=== PATIENT | female | born 1960 | race Caucasian/White ===

== ENCOUNTER → 2017-12-31 | Outpatient (CLI) | payer SELFPAY ==
[~2017-12-31] MED LIST: ASPIRIN 32325 MG/TAB PO; LORTAB 5/500 501 TAB PO; METHOCARBAMOL500 MG PO; NO HOME MEDICATIONS
[2017-12-31 17:25] LABS: THYROID STIMULATING HORMONE < 0.015 uIU/mL (0.465-4.680)
== END ==
LOC: ZLAB.FHCC 16:41
DX: Z01.89 Encounter for other specified special examinations (principal)

== ENCOUNTER 2018-01-17 01:20 | Emergency (ER) | payer SELFPAY ==
[~2018-01-17] VITALS: Ht 157.5 cm; Wt 63.6 kg
[2018-01-17 01:25] VITALS: TEMP 97.7
[2018-01-17] MEDS ORDERED: ASPIRIN 81M81 MG/TA2 PO (01:32)
[2018-01-17] MEDS ORDERED: PLAVIX 75MG TAB75 MG PO (01:33)
[2018-01-17] MEDS ORDERED: LIPITOR 80MG80 MG PO (01:33)
[2018-01-17] MEDS ORDERED: TAPAZOLE10 MG PO (01:33)
[2018-01-17] MEDS ORDERED: TOPROL XL 50MG50 MG PO (01:34)
[2018-01-17] MEDS ORDERED: NITROSTAT0.4 MG/TAB SL (01:34)
[2018-01-17 02:12] LABS: COLLECTION METHOD CLEAN CATCH
[2018-01-17 02:14] LABS: BASO % 0.5 % (0.0-2.0); EOS # 0.4 (0.0-0.7); EOS % 5.3 % (0-4.0); GRAN # 3.9 (1.4-6.5); HEMATOCRIT 37.7 % (37.0-47.0); HEMOGLOBIN 12.4 g/dl (12.5-16.0); LYMPH # 3.1 (1.2-3.4); LYMPH % 38.5 % (20.0-51.0); MEAN CELL VOLUME 80 fl (80.0-100.0); MEAN CORPUSCULAR HEMOGLOBIN 26 pg (27.0-31.0); MEAN CORPUSCULAR HGB CONC 33 g/dl (33.0-37.0); MEAN PLATELET VOLUME 9.9 fl (7.4-10.4); MONO # 0.6 (0.1-0.6); MONO % 7.6 % (1.7-9.3); PLATELET COUNT 309 K/mm3 (130-400); RED BLOOD COUNT 4.73 M/mm3 (4.10-5.30); REDCELL DISTRIBUTION WIDTH-CV 13.1 % (11.5-14.5)
[2018-01-17 02:18] LABS: PH 5 (5-8); SQUAMOUS EPITHELIAL None Seen /hpf; URINE APPEARANCE Clear; URINE BACTERIA None Seen /hpf; URINE BILIRUBIN Negative (NEGATIVE); URINE BLOOD Negative (NEGATIVE); URINE COLOR Straw; URINE GLUCOSE Negative (NEGATIVE); URINE KETONE Negative (NEGATIVE); URINE LEUKOCYTE ESTERASE Negative (NEGATIVE); URINE NITRATE Negative (NEGATIVE); URINE PROTEIN(semi-quant) Negative (NEGATIVE); URINE RBC 0-2 /hpf; URINE UROBILINOGEN Negative (NEGATIVE)
[2018-01-17 02:25] LABS: ALANINE AMINOTRANSFERASE 24 U/L (9-52); ALBUMIN 4.2 gm/dL (3.5-5.0); ALKALINE PHOSPHATASE 229 U/L (50-136); ANION GAP 16 mmol/L (7-16); AST,SGOT 22 U/L (15-37); BILIRUBIN,TOTAL 0.6 mg/dL (0.0-1.0); BLOOD UREA NITROGEN 13 mg/dL (7-17); CARBON DIOXIDE 19 mmol/L (22-30); CHLORIDE 108 mmol/L (98-107); CREATININE, serum 0.67 mg/dL (0.52-1.25); GLUCOSE 93 mg/dL (74-106); LIPASE 419 U/L (23-300); SODIUM 142 mmol/L (137-145); TOTAL PROTEIN 8.8 gm/dL (6.4-8.2)
[2018-01-17 02:38] LABS: C-REACTIVE PROTEIN < 0.5 mg/dL (0.0-0.9)
[2018-01-17] MEDS ORDERED: MIRALAX 255 GM255 GM PO (05:04)
[2018-01-17 05:15] VITALS: BP 114/87; PULSE 49
[2018-01-18] MEDS ORDERED: FLEXERIL 1010 MG/TAB PO (06:29)
[2018-01-18] MEDS ORDERED: LIDODERM 5% PATC1 EA TP (06:29)
== END 2018-01-17 05:16 | disposition home or self-care (01) ==
LOC: COL.ER 01:20
PROVIDERS: Emergency Medicine
DX: K59.00 Constipation, unspecified (principal); I25.10 Atherosclerotic heart disease of native coronary artery without angina pectoris; Z79.82 Long term (current) use of aspirin; Z79.02 Long term (current) use of antithrombotics/antiplatelets; Z87.891 Personal history of nicotine dependence; Z98.890 Other specified postprocedural states; Z86.39 Personal history of other endocrine, nutritional and metabolic disease
CPT/HCPCS: J1885; J2405; J3010; J7030

== ENCOUNTER 2018-01-18 03:34 | Emergency (ER) | payer SELFPAY ==
[~2018-01-18] VITALS: Ht 157.5 cm; Wt 63.6 kg
[~2018-01-18 03:34] MED LIST changes: +ASPIRIN 81M81 MG/TA2 PO; +LIPITOR 80MG80 MG PO; +MIRALAX 255 GM255 GM PO; +NITROSTAT0.4 MG/TAB SL; +PLAVIX 75MG TAB75 MG PO; +TAPAZOLE10 MG PO; +TOPROL XL 50MG50 MG PO
[2018-01-18 03:39] VITALS: TEMP 97
[2018-01-18 04:23] LABS: BASO % 0.5 % (0.0-2.0); EOS # 0.3 (0.0-0.7); EOS % 5.3 % (0-4.0); GRAN # 3.1 (1.4-6.5); LYMPH % 34.2 % (20.0-51.0); MEAN CELL VOLUME 80 fl (80.0-100.0); MEAN CORPUSCULAR HEMOGLOBIN 26 pg (27.0-31.0); MEAN CORPUSCULAR HGB CONC 33 g/dl (33.0-37.0); MEAN PLATELET VOLUME 10.1 fl (7.4-10.4); MONO # 0.5 (0.1-0.6); MONO % 7.8 % (1.7-9.3); PLATELET COUNT 271 K/mm3 (130-400)
[2018-01-18 04:38] LABS: HEMATOCRIT 33.5 % (37.0-47.0)
[2018-01-18 04:46] LABS: ALBUMIN 3.7 gm/dL (3.5-5.0); BILIRUBIN,TOTAL 0.7 mg/dL (0.0-1.0); CALCIUM 9.4 mg/dL (8.4-10.2); CREATININE, serum 0.64 mg/dL (0.52-1.25); POTASSIUM 4.2 mmol/L (3.4-5.0); TOTAL PROTEIN 7.5 gm/dL (6.4-8.2)
[2018-01-18 04:57] LABS: TROPONIN-I 0.031 ng/mL (0.000-0.034)
[2018-01-18] MEDS ORDERED: FLEXERIL 1010 MG/TAB PO (06:29)
[2018-01-18] MEDS ORDERED: LIDODERM 5% PATC1 EA TP (06:29)
[2018-01-18 06:51] VITALS: BP 95/60; PULSE 55
== END 2018-01-18 06:57 | disposition home or self-care (01) ==
LOC: COL.ER 03:34
PROVIDERS: Emergency Medicine
DX: K59.00 Constipation, unspecified (principal); R07.81 Pleurodynia; Z79.82 Long term (current) use of aspirin; Z79.02 Long term (current) use of antithrombotics/antiplatelets; Z87.891 Personal history of nicotine dependence; E05.00 Thyrotoxicosis with diffuse goiter without thyrotoxic crisis or storm
CPT/HCPCS: J1885

== ENCOUNTER → 2018-03-08 | Outpatient (CLI) | payer SELFPAY ==
[~2018-03-08] MED LIST changes: +FLEXERIL 1010 MG/TAB PO; +LIDODERM 5% PATC1 EA TP
[2018-03-08 09:14] LABS: CHOLESTEROL RISK RATIO 3.1
== END ==
LOC: COL.LAB 08:22
PROVIDERS: Family Medicine
DX: I21.9 Acute myocardial infarction, unspecified (principal)

== ENCOUNTER → 2018-04-30 | Outpatient (CLI) | payer SELFPAY ==
[2018-04-30 09:16] LABS: COLLECTION METHOD CLEAN CATCH
[2018-04-30 09:21] LABS: HEMATOCRIT 43.1 % (37.0-47.0); HEMOGLOBIN 14.1 g/dl (12.5-16.0); MEAN CELL VOLUME 87 fl (80.0-100.0); MEAN CORPUSCULAR HEMOGLOBIN 29 pg (27.0-31.0); MEAN CORPUSCULAR HGB CONC 33 g/dl (33.0-37.0); MEAN PLATELET VOLUME 10.1 fl (7.4-10.4); PLATELET COUNT 299 K/mm3 (130-400); RED BLOOD COUNT 4.95 M/mm3 (4.10-5.30); REDCELL DISTRIBUTION WIDTH-CV 14.8 % (11.5-14.5)
[2018-04-30 09:29] LABS: MUCOUS Present /lpf; PH 7 (5-8); SQUAMOUS EPITHELIAL 0-2 /hpf; URINE APPEARANCE Clear; URINE BACTERIA None Seen /hpf; URINE BILIRUBIN Negative (NEGATIVE); URINE BLOOD Negative (NEGATIVE); URINE COLOR Straw; URINE GLUCOSE Negative (NEGATIVE); URINE KETONE Negative (NEGATIVE); URINE LEUKOCYTE ESTERASE Negative (NEGATIVE); URINE NITRATE Negative (NEGATIVE); URINE PROTEIN(semi-quant) 2+ (NEGATIVE); URINE RBC 0-2 /hpf; URINE UROBILINOGEN Negative (NEGATIVE); URINE WBC 0-2 /hpf
[2018-04-30 09:30] LABS: ALBUMIN 4.2 gm/dL (3.5-5.0); BILIRUBIN,TOTAL 0.4 mg/dL (0.0-1.0); CHOLESTEROL RISK RATIO 3.2; CREATININE, serum 0.94 mg/dL (0.52-1.25); POTASSIUM 4.9 mmol/L (3.4-5.0); TOTAL PROTEIN 7.8 gm/dL (6.4-8.2)
== END ==
LOC: COL.LAB 08:25
PROVIDERS: Family Medicine
DX: I70.202 Unspecified atherosclerosis of native arteries of extremities, left leg (principal); I25.2 Old myocardial infarction; R10.31 Right lower quadrant pain; Z98.890 Other specified postprocedural states

== ENCOUNTER → 2018-05-03 | Outpatient (CLI) | payer SELFPAY | LOC: COL.RAD 14:04 | DX: M43.8X6 Other specified deforming dorsopathies, lumbar region (principal); R10.31 Right lower quadrant pain | CPT/HCPCS: Q9967 ==

== ENCOUNTER → 2018-06-04 | Outpatient (CLI) | payer SELFPAY | LOC: COL.LAB 11:56 | PROVIDERS: Family Medicine | DX: I73.9 Peripheral vascular disease, unspecified (principal); I25.2 Old myocardial infarction; R00.1 Bradycardia, unspecified ==

== ENCOUNTER → 2018-06-08 | Outpatient (CLI) | payer SELFPAY | LOC: COL.CARD 07:30 | DX: R00.1 Bradycardia, unspecified (principal); I73.9 Peripheral vascular disease, unspecified; R53.83 Other fatigue ==

== ENCOUNTER → 2018-06-11 | Outpatient (CLI) | payer OTHER | LOC: COL.LAB 09:55 | DX: Z01.89 Encounter for other specified special examinations (principal) ==

== ENCOUNTER → 2018-06-18 | Outpatient (CLI) | payer SELFPAY | LOC: COL.LAB 12:54 | DX: E03.9 Hypothyroidism, unspecified (principal) ==

== ENCOUNTER → 2018-07-05 | Outpatient (CLI) | payer SELFPAY | LOC: COL.LAB 13:07 | DX: Z01.89 Encounter for other specified special examinations (principal) ==

== ENCOUNTER → 2018-08-04 | Outpatient (CLI) | payer MEDICAID ==
[2018-08-04 11:44] LABS: THYROID STIMULATING HORMONE 0.029 uIU/mL (0.465-4.680)
== END ==
LOC: ZCOL.LAB 10:18 → COL.LAB 10:18
PROVIDERS: Family Medicine
DX: E05.00 Thyrotoxicosis with diffuse goiter without thyrotoxic crisis or storm (principal)

== ENCOUNTER → 2019-02-03 | Outpatient (CLI) | payer MEDICAID | LOC: COL.RAD 09:39 | DX: E05.00 Thyrotoxicosis with diffuse goiter without thyrotoxic crisis or storm (principal) | CPT/HCPCS: A9516 ==

== ENCOUNTER → 2019-05-26 | Outpatient (CLI) | payer MEDICAID | LOC: COL.VAS 14:38 | DX: I10 Essential (primary) hypertension (principal); R01.1 Cardiac murmur, unspecified; I35.1 Nonrheumatic aortic (valve) insufficiency ==

== ENCOUNTER → 2021-08-07 | Outpatient (CLI) | payer MEDICAID | LOC: COL.RAD 10:47 | DX: I70.1 Atherosclerosis of renal artery (principal); Z95.828 Presence of other vascular implants and grafts | CPT/HCPCS: Q9967 ==

== ENCOUNTER → 2021-08-08 | Outpatient (CLI) | payer MEDICAID | LOC: COL.RAD 10:15 | DX: Z95.1 Presence of aortocoronary bypass graft (principal) | CPT/HCPCS: Q9967 ==

== ENCOUNTER 2023-08-14 09:31 | Emergency (ER) | payer SELFPAY ==
[~2023-08-14] VITALS: Ht 160 cm; Wt 76.4 kg
[2023-08-14 09:47] VITALS: TEMP 97.8
[2023-08-14 10:24] LABS: BASO # 0.1 K/mm3 (0.0-0.2); BASO % 0.9 % (0.0-2.0); EOS # 0.2 K/mm3 (0.0-0.7); EOS % 2.5 % (0.0-4.0); GRAN # 5.8 K/mm3 (1.4-6.5); GRAN % 68.3 % (42.2-75.2); HEMATOCRIT 39.3 % (37.0-47.0); HEMOGLOBIN 12.7 g/dl (12.5-16.0); LYMPH # 1.9 K/mm3 (1.2-3.4); LYMPH % 22.3 % (20.0-51.0); MEAN CELL VOLUME 91 fl (80.0-100.0); MEAN CORPUSCULAR HEMOGLOBIN 30 pg (27-31); MEAN CORPUSCULAR HGB CONC 32 g/dl (33.0-37.0); MEAN PLATELET VOLUME 10.1 fl (7.4-10.4); MONO # 0.5 K/mm3 (0.1-0.6); MONO % 5.8 % (1.7-9.3); PLATELET COUNT 394 K/mm3 (130-400); RED BLOOD COUNT 4.31 M/mm3 (4.10-5.30)
[2023-08-14 10:44] LABS: ALBUMIN 3.4 gm/dL (3.4-4.8); BILIRUBIN,TOTAL 0.4 mg/dL (0.2-1.2); CALCIUM 10.5 mg/dL (8.4-10.2); CREATININE, serum 2.51 mg/dL (0.57-1.11); POTASSIUM 4.5 mmol/L (3.5-4.5); TOTAL PROTEIN 8.5 gm/dL (6.2-8.1)
[2023-08-14 11:44] LABS: COLLECTION METHOD CLEAN CATCH
[2023-08-14 11:55] LABS: SQUAMOUS EPITHELIAL None Seen /hpf (0-10); URINE APPEARANCE Clear (CLEAR/HAZY); URINE BLOOD TRACE-LYSED (NEGATIVE); URINE COLOR Yellow (YELLOW); URINE GLUCOSE Negative (NEGATIVE); URINE KETONE Negative (NEGATIVE); URINE NITRATE Negative (NEGATIVE); URINE PROTEIN(semi-quant) 3+ (NEGATIVE); URINE RBC None Seen /hpf (0-2); URINE UROBILINOGEN 0.2 E.U/dL (0.2-1.0)
[2023-08-14 13:48] VITALS: BP 152/46; PULSE 60
== END 2023-08-14 13:48 | disposition home or self-care (01) ==
LOC: COL.ER 09:31
PROVIDERS: Physician Assistant
DX: R20.2 Paresthesia of skin (principal); R11.2 Nausea with vomiting, unspecified; R19.7 Diarrhea, unspecified; I25.810 Atherosclerosis of coronary artery bypass graft(s) without angina pectoris; N18.4 Chronic kidney disease, stage 4 (severe); Z87.891 Personal history of nicotine dependence; Z79.82 Long term (current) use of aspirin
CPT/HCPCS: J7030

== ENCOUNTER → 2023-08-17 | Outpatient (CLI) | payer SELFPAY | LOC: COL.RAD 07:48 | DX: M79.7 Fibromyalgia (principal); N18.4 Chronic kidney disease, stage 4 (severe); I25.10 Atherosclerotic heart disease of native coronary artery without angina pectoris; Z95.820 Peripheral vascular angioplasty status with implants and grafts; Z95.5 Presence of coronary angioplasty implant and graft ==

== ENCOUNTER 2023-09-18 15:44 | Inpatient (IN) | payer SELFPAY ==
[~2023-09-18] VITALS: Ht 160 cm; Wt 79.3 kg
[2023-09-18 17:13] LABS: BASO # 0.1 K/mm3 (0.0-0.2); BASO % 0.8 % (0.0-2.0); EOS # 0.3 K/mm3 (0.0-0.7); EOS % 2.4 % (0.0-4.0); GRAN # 9.1 K/mm3 (1.4-6.5); GRAN % 72.5 % (42.2-75.2); LYMPH # 1.7 K/mm3 (1.2-3.4); LYMPH % 13.7 % (20.0-51.0); MEAN CELL VOLUME 89 fl (80.0-100.0); MEAN CORPUSCULAR HGB CONC 32 g/dl (33.0-37.0); MONO # 1.3 K/mm3 (0.1-0.6); MONO % 10.1 % (1.7-9.3); PLATELET COUNT 472 K/mm3 (130-400); RED BLOOD COUNT 3.37 M/mm3 (4.10-5.30); REDCELL DISTRIBUTION WIDTH-CV 13.2 % (11.5-14.5)
[2023-09-18 17:13] LABS: COLLECTION METHOD CLEAN CATCH
[2023-09-18 17:26] LABS: ALBUMIN 2.9 gm/dL (3.4-4.8); BILIRUBIN,TOTAL 0.5 mg/dL (0.2-1.2); C-REACTIVE PROTEIN 17.4 mg/dL (0.00-0.50); CALCIUM 9.5 mg/dL (8.4-10.2); CREATININE, serum 2.81 mg/dL (0.57-1.11); POTASSIUM 4.3 mmol/L (3.5-4.5); TOTAL PROTEIN 7.7 gm/dL (6.2-8.1)
[2023-09-18 17:28] LABS: HEMOGLOBIN 9.5 g/dl (12.5-16.0); MEAN CORPUSCULAR HEMOGLOBIN 28 pg (27-31)
[2023-09-18 17:35] LABS: TROPONIN-I 0.115 ng/mL (0.00-0.033)
[2023-09-18 17:40] LABS: PH 5.5 (5.0-8.5); URINE APPEARANCE Hazy (CLEAR/HAZY); URINE BLOOD TRACE-INTACT (NEGATIVE); URINE COLOR Yellow (YELLOW); URINE GLUCOSE Negative (NEGATIVE); URINE KETONE Negative (NEGATIVE); URINE NITRATE Negative (NEGATIVE); URINE PROTEIN(semi-quant) 3+ (NEGATIVE); URINE RBC 0-2 /hpf (0-2); URINE UROBILINOGEN 0.2 E.U/dL (0.2-1.0); URINE WBC 20-50 /hpf (0-2)
[2023-09-18 17:41] LABS: URINE BACTERIA Rare /hpf (NONE SEEN)
[2023-09-18 18:19] LABS: ERYTHROCYTE SEDIMENTATION RATE 69 mm/hr (0-30)
[2023-09-18] MEDS ORDERED: cefTRIAXone 1 G in Water For Injection,Sterile 10 ML IV ONE (19:00)
[2023-09-18] MEDS ORDERED: TIROSINT75 MC1 PO (20:25)
[2023-09-18] MEDS ORDERED: NORVASC 5MG5 MG/TAB PO ×2 (20:27)
[2023-09-18] MEDS ORDERED: TYLENOL 500MG500 MG PO (20:27)
[2023-09-18] MEDS ORDERED: TENORMIN 2525 MG/TAB PO (20:28)
[2023-09-18] MEDS ORDERED: B-121000 MCG PO (20:29)
[2023-09-18] MEDS ORDERED: SLOW FE137 M1 PO (20:31)
[2023-09-18] MEDS ORDERED: CATAPRES0.2 MG PO (20:32)
[2023-09-18] MEDS ORDERED: PRALUENT P75 MG/1 ML SQ (20:33)
[2023-09-18] MEDS ORDERED: LYRICA 25MG CAP25 MG PO (20:34)
[2023-09-18] MEDS ORDERED: SENOKOT8.6 MG PO (20:34)
[2023-09-18] MEDS ORDERED: Cyclobenzaprine 10 MG TAB PO PRN (20:45)
[2023-09-18 21:00] VITALS: BP_SYST 159
[2023-09-18] MEDS ORDERED: amLODIPine 5 MG TAB PO SCH (21:00)
[2023-09-18] MEDS ORDERED: Ondansetron 4 MG/2 ML VIAL IV PRN (21:00)
[2023-09-18] MEDS ORDERED: cefTRIAXone 1 G in Water For Injection,Sterile 10 ML IV SCH (21:00)
[2023-09-18] MEDS ORDERED: Acetaminophen 325 MG TAB PO PRN (21:00)
[2023-09-18] MEDS ORDERED: Morphine 4 MG/ML VIAL IV PRN (21:00)
[2023-09-18] MEDS ORDERED: cloNIDine 0.1 MG TAB PO SCH (21:00)
[2023-09-18] MEDS ORDERED: Pregabalin 25 MG CAP PO SCH (21:00)
[2023-09-18] MEDS ORDERED: Sennosides/Docusate 8.6-50 MG TAB PO SCH (21:00)
[2023-09-18] MEDS ORDERED: Albuterol/Ipratropium 3 MG-0.5 MG/3 ML Neb Soln IH PRN (21:00)
[2023-09-18] MEDS ORDERED: NS 1,000 ML IV SCH (21:00)
--- NOTE | 2023-09-18 21:12 | NUR ---
Vancomycin Initial Dosing Pharmacy Note Ordering provider: Horace Smith Indication/duration: Empiric treatment x5 days for now Relevant comorbidities: Recent surgery, [facility] consulted and recommended vancomycin and ceftriaxone after blood cultures obtained. LABS: Scr 2.81, crcl ~20 mL/min Recommendation: Start vancomycin 1500mg (20 mg/kg) loading dose, then 1000mg q48h. Goal trough 15-20, calculated trough ~15 on current ordered dose. No torugh ordered at this time. Loading dose: 1.5 grams Maintenance dose: 1 gram every 48 hours Trough goal: 15-20 ug/mL
[2023-09-18] MEDS ORDERED: Vancomycin 1.5 GM,Special Dose/Pharmacy Prepared 1.5 GM in NS 250 ML IV ONE (21:15)
[2023-09-18] MEDS ORDERED: NEURONTIN100 MG/CAP PO (22:11)
[2023-09-18 22:25] VITALS: BP 159/67; PULSE 69; TEMP 98.7
--- NOTE | 2023-09-18 23:41 | NUR ---
Patient arrived to the floor at 2148 from ED, IV to right AC infusing well, A/Ox4, admission assessment and intake done, medrec done, spoken to Radu the PA and informed him that she's no longer on plavix, pregabalin, lidocaine patch, miralax, metoprolol, methimazole, flexeril and lipitor; hospital policies orientated, denies further needs, call light and personal items within reach, will continue to monitor.
[2023-09-19] VITALS (13 sets, daily range): BP systolic 110–159; BP diastolic 56–87; PULSE 59–71; TEMP 98–99.8
--- NOTE | 2023-09-19 04:59 | NUR ---
Patient resting in bed, eyes closed, looks comfortable, respirations even and unlabored.
[2023-09-19 07:17] LABS: BASO # 0.1 K/mm3 (0.0-0.2); BASO % 0.8 % (0.0-2.0); EOS # 0.4 K/mm3 (0.0-0.7); EOS % 4.3 % (0.0-4.0); GRAN # 6.6 K/mm3 (1.4-6.5); GRAN % 69.2 % (42.2-75.2); LYMPH # 1.4 K/mm3 (1.2-3.4); LYMPH % 14.3 % (20.0-51.0); MEAN CELL VOLUME 89 fl (80.0-100.0); MEAN CORPUSCULAR HGB CONC 31 g/dl (33.0-37.0); MEAN PLATELET VOLUME 10.4 fl (7.4-10.4); MONO # 1.1 K/mm3 (0.1-0.6); MONO % 11.1 % (1.7-9.3); PLATELET COUNT 497 K/mm3 (130-400); RED BLOOD COUNT 2.61 M/mm3 (4.10-5.30); REDCELL DISTRIBUTION WIDTH-CV 13.2 % (11.5-14.5)
[2023-09-19 07:23] LABS: HEMATOCRIT 23.1 % (37.0-47.0); HEMOGLOBIN 7.2 g/dl (12.5-16.0); MEAN CORPUSCULAR HEMOGLOBIN 28 pg (27-31)
[2023-09-19 07:41] LABS: C-REACTIVE PROTEIN 14.72 mg/dL (0.00-0.50)
[2023-09-19 07:43] LABS: ALBUMIN 2.4 gm/dL (3.4-4.8); BILIRUBIN,TOTAL 0.3 mg/dL (0.2-1.2); CALCIUM 8.7 mg/dL (8.4-10.2); CHOLESTEROL RISK RATIO 5.2; CREATININE, serum 2.67 mg/dL (0.57-1.11); POTASSIUM 4.4 mmol/L (3.5-4.5); TOTAL PROTEIN 6.4 gm/dL (6.2-8.1)
[2023-09-19 08:03] LABS: THYROID STIMULATING HORMONE 9.244 uIU/mL (0.350-4.940)
[2023-09-19] MEDS ORDERED: Ferrous Sulfate 325 MG TAB PO SCH (09:00)
[2023-09-19] MEDS ORDERED: Atenolol 25 MG TAB PO SCH (09:00)
[2023-09-19] MEDS ORDERED: Polyethylene Glycol 3350 17 GM PDS PO SCH (09:00)
[2023-09-19] MEDS ORDERED: Clopidogrel 75 MG TAB PO SCH (09:00)
--- NOTE | 2023-09-19 09:25 | NUR ---
PATIENT ALERT AND ORIENTED X4. VSS. PATIENT HERE FEVERS/NAUSEA, LEFT PLEURAL EFFUSION. PATIENT DENIES ANY PAIN AT THIS TIME. PATIENT ON RA. PATIENT TOLERATED BREAKFAST. IV TO RIGHT AC INT AND FLUSHES WELL. PATIENT DENIES ANY FURTHER NEEDS. CALL LIGHT IN REACH.
--- NOTE | 2023-09-19 15:01 | NUR ---
Electric Sign Wirer met with patient to discuss discharge planning. Patient lives in [place] and sees Dr. Ortega for primary care. Patient does not use any DME and is independent with [facility]. Patient does not have insurance at this time and would like to speak with financial counseling. [employer] sent an email to [employer]. Patient does not have DPOA-HC but was interested in taking home a blank form, which [employer] provided. Patient advised two of her siblings, Tracie and Guy are her local supports. Patient plans to return home at time of discharge. Discharge Plan: Home
[2023-09-19] MEDS ORDERED: cefTRIAXone 1 G in Water For Injection,Sterile 10 ML IV SCH (20:00)
--- NOTE | 2023-09-19 20:36 | NUR ---
Patient assessed at this time, see shift assessment, reports pain to left abdomen, PS of 4/10, wanted to take tylenol doesn't want any narcotic at this time, denies further needs, call light and personal items within reach, will continue to monitor.
[2023-09-19] MEDS ORDERED: Gabapentin 100 MG CAP PO SCH (21:00)
[2023-09-20] VITALS (12 sets, daily range): BP systolic 105–148; BP diastolic 57–72; PULSE 60–74; TEMP 98.2–99.7
--- NOTE | 2023-09-20 06:40 | NUR ---
Patient reports her pain on her abdomen is better, denies further needs, she is concerned with her left side of her neck swelled up, will report off to dayshift nurse.
[2023-09-20] MEDS ORDERED: Polyethylene Glycol 3350 17 GM PDS PO SCH (09:00)
[2023-09-20] MEDS ORDERED: metroNIDAZOLE 250 MG TAB PO SCH (10:00)
--- NOTE | 2023-09-20 10:15 | NUR ---
pt a&ox3 resting in bed. meds given and assessment complete. pt denies pain. vss and tele in place. pt remains afebrile. denies feeling SOB. +1 pitting edema is present to her RLE. there is a small lump to the left side of her neck, dr eagle aware and US ordered. pt denies needs at this time. call light in reach.
--- NOTE | 2023-09-20 18:40 | NUR ---
pt reports increased pain to left side of her abdomen. spoke to jazzy HEATH and received order for tramadol.
[2023-09-20] MEDS ORDERED: traMADol 50 MG TAB PO PRN ×2 (18:45)
--- NOTE | 2023-09-20 19:13 | NUR ---
PT REFUSED TRAMADOL D/T CKD. MEDICATED WITH MORPHINE 2MG IVP FOR PAIN TO LT ABD AND FOOT.
[2023-09-20] MEDS ORDERED: Bisacodyl 5 MG TAB PO PRN (19:30)
--- NOTE | 2023-09-20 20:00 | NUR ---
PT IN BED, REPORTS CONSTIPATION, NEW ORDER RECEIVED FOR DULCOLAX TABS PRN, DOSE GIVEN NOW WITH HS MEDS. PT IS ALERT AND ORIENTED X4. HAS INT TO RT WRIST, IV ANTIBIOTIC GIVEN WITHOUT PROBLEM. PT REPORTS DECREASED URINATION, HAT PLACED IN TOILET TO MONITOR. PT DENIES WEAKNESS, INDEPENDENT IN ROOM. NOTED LLL DIMINISHED. DENIES SHORTNESS OF BREATH WITH ACTIVITY. HAS MULTIPLE HEALED INCISIONS FROM SURGERY, LT CHEST, LT ABD AND BILATERAL GROIN. PT HAS GOOD PEDAL PULSES. PT REPORTS SHE THINKS HER GOUT IS FLARING, NO REDNESS NOTED. PAIN IMPROVED WITH MORPHINE IV.
--- NOTE | 2023-09-20 22:00 | NUR ---
ORAL FLAGYL GIVEN, DISCUSSED REASON FOR MED, PT VERBALIZED UNDERSTANDING.
--- NOTE | 2023-09-20 22:56 | NUR ---
MEDICATED WITH MORPHINE 2MG IVP FOR FOOT PAIN.
[2023-09-21] VITALS (12 sets, daily range): BP systolic 109–145; BP diastolic 62–80; PULSE 54–73; TEMP 97.8–98.7
--- NOTE | 2023-09-21 04:00 | NUR ---
VSS, NO REQUEST FOR PAIN MEDS AT THIS TIME.
--- NOTE | 2023-09-21 08:00 | NUR ---
pt a&ox3 resting in bed. meds given and assessment complete. pt rates pain a 3/10 in her abdomen. denies feeling sob. vss and tele in place. INT to right wrist patent. +1 pitting edema still present to RLE. pt to have radiology studies today. pt also reports feeling less bloated this morning. pt denies needs at this time. call light in reach.
[2023-09-21] MEDS ORDERED: predniSONE 20 MG TAB PO SCH (10:00)
[2023-09-21 10:01] LABS: INR 1.2 (0.8-3.0)
--- NOTE | 2023-09-21 10:41 | NUR ---
pt off floor for ultrasound
[2023-09-21 11:21] LABS: CREATININE, serum 2.77 mg/dL (0.57-1.11)
--- NOTE | 2023-09-21 11:51 | NUR ---
pt back in room from ultrasound studies
[2023-09-21 12:30] LABS: PLEURAL FLUID COLOR YELLOW
[2023-09-21 12:31] LABS: PLEURAL FLUID APPEARANCE HAZY; PLEURAL FLUID RBC 1000 /mm3 (0-0); PLEURAL FLUID WBC 1158 /mm3
--- NOTE | 2023-09-21 20:00 | NUR ---
PT AMBULATES IN HALLWAY WITH WALKER, GAIT STEADY.
--- NOTE | 2023-09-21 20:50 | NUR ---
INT TO RT WRIST LEAKING. NEW INT STARTED TO LT WRIST, #20 INSYTE ON FIRST ATTEMPT. VANCOMYCIN INFUSING WITHOUT PROBLEM. PT TAKES HS MEDS AT THIS TIME. HAS BANDAID TO LT POSTERIOR BACK S/P THORACENTESIS. PT REPORTS FEELING BETTER AND HAS BEEN UP MORE IN ROOM. DENIES PAIN AT THIS TIME.
[2023-09-22] VITALS (11 sets, daily range): BP systolic 109–140; BP diastolic 64–70; PULSE 59–106; TEMP 97.6–98.2
[2023-09-22] MEDS ORDERED: Patient's Own Medication Item PO SCH (07:00)
[2023-09-22 09:26] LABS: BASO # 0.1 K/mm3 (0.0-0.2); BASO % 0.4 % (0.0-2.0); EOS % 0.2 % (0.0-4.0); GRAN # 10.2 K/mm3 (1.4-6.5); GRAN % 80.7 % (42.2-75.2); LYMPH # 1.5 K/mm3 (1.2-3.4); LYMPH % 11.4 % (20.0-51.0); MEAN CELL VOLUME 88 fl (80.0-100.0); MEAN CORPUSCULAR HGB CONC 31 g/dl (33.0-37.0); MEAN PLATELET VOLUME 10.8 fl (7.4-10.4); MONO # 0.8 K/mm3 (0.1-0.6); MONO % 6.5 % (1.7-9.3); PLATELET COUNT 434 K/mm3 (130-400); RED BLOOD COUNT 3.33 M/mm3 (4.10-5.30); REDCELL DISTRIBUTION WIDTH-CV 13.2 % (11.5-14.5)
[2023-09-22 09:29] LABS: HEMATOCRIT 29.2 % (37.0-47.0); HEMOGLOBIN 9.1 g/dl (12.5-16.0); MEAN CORPUSCULAR HEMOGLOBIN 27 pg (27-31)
[2023-09-22 09:54] LABS: C-REACTIVE PROTEIN 13.14 mg/dL (0.00-0.50); CREATININE, serum 2.69 mg/dL (0.57-1.11); POTASSIUM 4.9 mmol/L (3.5-4.5)
--- NOTE | 2023-09-22 09:56 | NUR ---
PATIENT ALERT AND ORIENTED X4. VSS. PATIENT HERE FOR FEVERS/NAUSEA/LEFT PLEURAL EFFUSION. PATIENT DENIES ANY PAIN THIS MORNING. ASSESSMENT PERFORMED. AM MEDS ADMINISTERED. PATIENT DENIES ANY FURTHER NEEDS. CALL LIGHT IN REACH.
[2023-09-22] MEDS ORDERED: Insulin Aspart (NovoLOG) SQ SCH (17:00)
--- NOTE | 2023-09-22 19:30 | NUR ---
Received report from CITLALY Champion. Pt is resting in bed at this time with the call light within reach. Pt is on tele monitor at this time. Pt does not look in distress at this time.
[2023-09-23] VITALS (13 sets, daily range): BP systolic 106–162; BP diastolic 56–75; PULSE 58–63; TEMP 97.5–98.3
--- NOTE | 2023-09-23 06:08 | NUR ---
Pt had an uneventful night. Pt denied pain throughout the night. Pt's vitals were stable throughout the night. Pt on room air. Pt did not have a bowel movement tonight. Pt moves independently in the room. Will give report to day shift nurse.
[2023-09-23 09:13] LABS: BASO # 0.1 K/mm3 (0.0-0.2); BASO % 0.3 % (0.0-2.0); GRAN # 13.3 K/mm3 (1.4-6.5); GRAN % 80.7 % (42.2-75.2); LYMPH # 2.2 K/mm3 (1.2-3.4); MEAN CELL VOLUME 84 fl (80.0-100.0); MEAN CORPUSCULAR HGB CONC 33 g/dl (33.0-37.0); MEAN PLATELET VOLUME 9.6 fl (7.4-10.4); MONO # 0.9 K/mm3 (0.1-0.6); MONO % 5.1 % (1.7-9.3); RED BLOOD COUNT 3.33 M/mm3 (4.10-5.30); REDCELL DISTRIBUTION WIDTH-CV 13.2 % (11.5-14.5)
[2023-09-23 09:14] LABS: HEMATOCRIT 28.1 % (37.0-47.0); HEMOGLOBIN 9.3 g/dl (12.5-16.0); MEAN CORPUSCULAR HEMOGLOBIN 28 pg (27-31); PLATELET COUNT 570 K/mm3 (130-400)
[2023-09-23 09:16] LABS: C-REACTIVE PROTEIN 6.49 mg/dL (0.00-0.50); CALCIUM 9.5 mg/dL (8.4-10.2); CREATININE, serum 2.45 mg/dL (0.57-1.11); POTASSIUM 4.2 mmol/L (3.5-4.5)
--- NOTE | 2023-09-23 11:30 | NUR ---
PATIENT ALERT AND ORIENTED X4. VSS. PATIENT HERE FOR NAUSEA/FEVERS, LEFT PLEURAL EFFUSION. PATIENT REPORTS PAIN 9/10, REPORTS NO BM. PATIENT ENCOURAGED TO TAKE FULL BOWEL REGIMEN. PATIENT AGREED. PATIENT ENCOURAGED TO INCREASE FLUID INTAKE AND AMBULATION. PATIENT ACKNOWLEDGES. TRAMADOL ADMINISTERED FOR PAIN, ZOFRAN FOR NAUSEA. NO FURTHER NEEDS. CALL LIGHT IN REACH.
[2023-09-23] MEDS ORDERED: Sod Phosphates Rectal Enema 133 ML bottle RC ONE (15:00)
[2023-09-23] MEDS ORDERED: metroNIDAZOLE 100 ML IV SCH (18:00)
--- NOTE | 2023-09-23 18:50 | NUR ---
IV INFILTRATED IN LEFT WRIST/HAND AREA AFTER VANCOMYCIN COMPLETE. IV FLAGYL TO BE STARTED, ATTEMPTED ONCE TO RESTART NEW IV. NO SUCCESS.
--- NOTE | 2023-09-23 19:50 | NUR ---
PLACED #22 INSYTE TO RFA ON FIRST ATTEMPT, IV FLAGYL CONNECTED, INFUSING WITHOUT PROBLEM.
--- NOTE | 2023-09-23 20:30 | NUR ---
PT IN BED, HS MEDS GIVEN. PT HAD MORE BM, SMALL SOFT. INDEPENDENT IN ROOM. DENIES NEED FOR PAIN MEDS. PUNCTURE SITE TO LT BACK LOLLY. AFEBRILE.
--- NOTE | 2023-09-23 23:09 | NUR ---
Tramadol 50mg po for Lt rib pain.
[2023-09-24] VITALS (7 sets, daily range): BP systolic 126–153; BP diastolic 69–76; PULSE 49–54; TEMP 97.8–98
--- NOTE | 2023-09-24 06:11 | NUR ---
SCHEDULED AM MEDS GIVEN. NO REQUEST FOR PAIN MEDS AT THIS TIME.
[2023-09-24 06:24] LABS: BASO % 0.2 % (0.0-2.0); GRAN # 9.6 K/mm3 (1.4-6.5); GRAN % 76.2 % (42.2-75.2); LYMPH # 2.1 K/mm3 (1.2-3.4); LYMPH % 16.6 % (20.0-51.0); MEAN CELL VOLUME 85 fl (80.0-100.0); MEAN CORPUSCULAR HGB CONC 32 g/dl (33.0-37.0); MEAN PLATELET VOLUME 9.6 fl (7.4-10.4); MONO # 0.7 K/mm3 (0.1-0.6); MONO % 5.9 % (1.7-9.3); PLATELET COUNT 484 K/mm3 (130-400); RED BLOOD COUNT 3.03 M/mm3 (4.10-5.30); REDCELL DISTRIBUTION WIDTH-CV 13.3 % (11.5-14.5)
[2023-09-24 06:38] LABS: CALCIUM 8.7 mg/dL (8.4-10.2); CREATININE, serum 2.28 mg/dL (0.57-1.11); POTASSIUM 5.2 mmol/L (3.5-4.5)
[2023-09-24 06:42] LABS: HEMATOCRIT 25.6 % (37.0-47.0); HEMOGLOBIN 8.3 g/dl (12.5-16.0); MEAN CORPUSCULAR HEMOGLOBIN 27 pg (27-31)
--- NOTE | 2023-09-24 09:48 | NUR ---
RECEIVED A CALL FROM TELE, PATIENT RUNNING AYAD AT 42BPM. CALLED DR HINDS TO NOTIFY. NO NEW ORDERS.
--- NOTE | 2023-09-24 10:06 | NUR ---
Snow Remover met with patient to check in and review discharge plan. Patient advised she has not been contacted by financial counseling yet and would like to discuss applying for Medicaid and financial assistance. SW sent follow up message to [employer].
--- NOTE | 2023-09-24 11:14 | NUR ---
PATIENT ALERT AND ORIENTED X4. VSS. PATIENT HERE FOR NAUSEA/FEVERS/LEFT PLEURAL EFFUSION. PATIENT REPORTS MILD PAIN THIS MORNING. PATIENT REPORTS 3 BM'S OVERNIGHT AND THIS MORNING. PATIENT GIVEN IV ZOFRAN DUE TO PATIENT REPORTING NAUSEA WITH MIRALAX INTAKE. PATIENT TOLERATED BREAKFAST WITH NO ISSUES. IV TO RIGHT FA INT AND FLUSHES WELL. CALL LIGHT IN REACH.
[2023-09-24] MEDS ORDERED: CLEOCIN HCL300 MG PO (13:13)
[2023-09-24] MEDS ORDERED: NORVASC 5MG5 MG/TAB PO (13:14)
[2023-09-24] MEDS ORDERED: LEADER CLE17 GM/Dose PO (13:15)
[2023-09-24] MEDS ORDERED: SENEXON-S 50-81 EACH PO (13:24)
[2023-09-24] MEDS ORDERED: ZOFRAN ODT4 MG PO (13:25)
--- NOTE | 2023-09-24 15:59 | NUR ---
DISCHARGE INSTRUCTIONS PROVIDED. PATIENT EDUCATION GIVEN. IV DC'D. MEDICATIONS REVIEWED. FOLLOW UP APPOINTMENTS DISCUSSED. PATIENT REPORTS HAVING APPT WITH VASCULAR SURGEON MADE, BUT NOT SURE OF TIME. APPT MADE WITH FAMILY PRACTICE. PATIENT DENIES ANY QUESTIONS OR CONCERSNS.
--- NOTE | 2023-09-24 16:38 | NUR ---
PATIENT ESCORTED OUT WITH BELONGINGS.
[2023-09-24] MEDS ORDERED: cefTRIAXone 1 G in Water For Injection,Sterile 10 ML IV SCH (20:00)
== END 2023-09-24 16:39 | disposition home or self-care (01) | DRG 155 ==
LOC: COL.ER 15:44 → SURG 20:36
PROVIDERS: Emergency Medicine; Internal Medicine; Physician Assistant; ADMIT Hospitalist
PROC: 0W9B3ZX Drainage of Left Pleural Cavity, Percutaneous Approach, Diagnostic (ICD-10-PCS; principal; 2023-09-21)
DX: K11.20 Sialoadenitis, unspecified (principal); J90 Pleural effusion, not elsewhere classified; K12.2 Cellulitis and abscess of mouth; M27.2 Inflammatory conditions of jaws; M79.81 Nontraumatic hematoma of soft tissue; I25.10 Atherosclerotic heart disease of native coronary artery without angina pectoris; N18.30 Chronic kidney disease, stage 3 unspecified; I12.9 Hypertensive chronic kidney disease with stage 1 through stage 4 chronic kidney disease, or unspecified chronic kidney disease; I08.0 Rheumatic disorders of both mitral and aortic valves; E03.9 Hypothyroidism, unspecified; G62.9 Polyneuropathy, unspecified; M10.9 Gout, unspecified; N89.8 Other specified noninflammatory disorders of vagina; D72.829 Elevated white blood cell count, unspecified; E78.5 Hyperlipidemia, unspecified; K59.00 Constipation, unspecified; Z79.890 Hormone replacement therapy; Z79.82 Long term (current) use of aspirin; Z95.5 Presence of coronary angioplasty implant and graft; Z95.820 Peripheral vascular angioplasty status with implants and grafts; Z87.891 Personal history of nicotine dependence; Z88.0 Allergy status to penicillin; Z88.8 Allergy status to other drugs, medicaments and biological substances
CPT/HCPCS: A9284; J0696; J1836; J2270; J2405; J3370; J7050; J7512; Q3014

== ENCOUNTER → 2023-11-19 | Outpatient (CLI) | payer MEDICAID ==
[~2023-11-19] MED LIST changes: +B-121000 MCG PO; +CATAPRES0.2 MG PO; +CLEOCIN HCL300 MG PO; +LEADER CLE17 GM/Dose PO; +LYRICA 25MG CAP25 MG PO; +NEURONTIN100 MG/CAP PO; +NORVASC 5MG5 MG/TAB PO; +PRALUENT P75 MG/1 ML SQ; +SENEXON-S 50-81 EACH PO; +SENOKOT8.6 MG PO; +SLOW FE137 M1 PO; +TENORMIN 2525 MG/TAB PO; +TIROSINT75 MC1 PO; +TYLENOL 500MG500 MG PO; +ZOFRAN ODT4 MG PO
== END ==
LOC: COL.RAD 11:35
DX: K43.9 Ventral hernia without obstruction or gangrene (principal)